=== PATIENT | male | born 1980 | race Caucasian/White ===

== ENCOUNTER 2017-01-30 20:39 | Emergency (ER) | payer MEDICAID ==
[2017-01-30 20:44] VITALS: RESP 16; TEMP 97.9
--- NOTE | 2017-01-30 21:51 | EDPHY ---
H & P Time Seen by Provider: 01/30/17 20:52 HPI/ROS: CHIEF COMPLAINT: Right wrist pain HISTORY OF PRESENT ILLNESS: 36-year-old [id number] male presents emergency department after a foosh injury yesterday while skateboarding. Patient denies head strike, no neck pain, he denies elbow or shoulder pain. He complains of right wrist pain. Patient denies numbness or tingling in his hand. Patient reports today his pain has become worse. He is here from [place] emptying his grandmother's house who just lifting and moving. Smoking Status: Heavy smoker Physical Exam: GEN: Awake, alert, oriented, no acute distress RESP: nl resp effort MSK: Right wrist with mild diffuse swelling, tenderness to palpation over distal radius, snuffbox tenderness, decreased range of motion due to pain, 2+ radial pulses, sensation intact to light touch, normal radial motor and sensation SKIN: Superficial abrasion to left shoulder Constitutional: Initial Vital Signs Temperature (C) 36.6 C 01/30/17 20:42 Heart Rate 112 H 01/30/17 20:42 Respiratory Rate 16 01/30/17 20:42 Blood Pressure 161/98 H 01/30/17 20:42 O2 Sat (%) 96 01/30/17 20:42 O2 Delivery Mode Room Air Allergies/Adverse Reactions: No Known Allergies Allergy (Unverified 01/30/17 20:44) Home Medications: Medication Instructions Recorded Albuterol Sulfate [Proair PRN 01/30/17 Respiclick] MDM/Departure - MDM Imaging Results: Imaging Impressions Wrist X-Ray 01/30/17 20:55 Impression: Possible nondisplaced fracture of the lunate. - Depart Disposition: Home, Routine, Self-Care Clinical Impression: Lunate fracture, closed Qualifiers: Encounter type: initial encounter Fracture alignment: nondisplaced Laterality: right Qualified Code(s): S62.124A - Nondisplaced fracture of lunate [semilunar] , right wrist, initial encounter for closed fracture Condition: Good Instructions: Hydrocodone/Acetaminophen (By mouth), Wrist Fracture in Adults ( ED) Additional Instructions: Rest, ice, elevate, keep Velcro wrist splint in place until your follow-up appointment with orthopedist, follow up at 1st available appointment. Keep splint in place at all time. Take 600 mg of ibuprofen every 8 hours with food for 3-5 days, take 1 [place] every 6 hours as needed for severe pain. Referrals: Magdy Osman MD [Medical Doctor] - As per Instructions (Orthopedist on-call)
[2017-01-30] MEDS ORDERED: HYDROCOD/APAP 5/325 PREPACK#6 BTL TAKEHOME ONE (21:55)
[2017-01-30 22:14] VITALS: BP 151/99; PULSE 101; O2SAT 94
== END 2017-01-30 22:13 | disposition home or self-care (01) ==
DX: S62.124A Nondisplaced fracture of lunate [semilunar], right wrist, initial encounter for closed fracture (principal); F17.200 Nicotine dependence, unspecified, uncomplicated; V00.138A Other skateboard accident, initial encounter; Y99.8 Other external cause status; Y93.51 Activity, roller skating (inline) and skateboarding
CPT/HCPCS: L3807